=== PATIENT | male | born 1960 | race Caucasian/White ===

== ENCOUNTER 2016-04-20 08:23 | Day surgery (SDC) | payer BC ==
[~2016-04-20] VITALS: Ht 180.3 cm; Wt 102.3 kg
[~2016-04-20 08:23] MED LIST: BAYER CHEWABLE81 MG PO; CARDIZEM CD240 MG PO; CO Q-10200 MG PO; CYCLOBENZAPRINE10 MG PO; FISH OIL 1,0001 CA1 PO; HYDROCODONE-APA1 TAB PO; PRAVACHOL40 MG PO; PRILOSEC20 MG PO; TUMERIC PO; ULTRAM50 MG PO; ZANTAC150 MG PO; ZESTRIL40 MG PO
[2016-04-20 09:24] LABS: BASOPHILS 0.3 % (0.0-2.0); EOSINOPHILS 2.7 % (0-7); HEMATOCRIT 51.9 % (42.0-54.0); HEMOGLOBIN 17.4 g/dL (13.5-17.5); IMMATURE GRANULOCYTES 0.2 % (0-5); LYMPHOCYTES 22.8 % (15-50); MCH 28.8 pg (26.0-34.0); MCHC 33.5 g/dL (31.0-37.0); MCV 85.8 fL (80.0-100.0); MONOCYTES 7.8 % (2-11); NEUTROPHILS 66.2 % (40-80); PLATELET COUNT 189 10x3/uL (130-400); RBC 6.05 10x6/uL (4.20-6.10); RDW 14.8 % (11.5-14.5); WBC 6.3 10x3/uL (4.8-10.8)
[2016-04-20] MEDS ORDERED: BYSTOLIC2.5 MG PO (09:26)
[2016-04-20 09:33] VITALS: BP 110/58; Ht 180.3 cm; Wt 102.3 kg
[2016-04-20 09:42] LABS: ANION GAP 11.6 mmol/L (8-16); CALCIUM 9.3 mg/dL (8.5-10.1); CARBON DIOXIDE 28.7 mmol/L (21.0-32.0); CREATININE - SERUM 1.2 mg/dL (0.6-1.3); POTASSIUM - SERUM 4.3 mmol/L (3.5-5.1)
--- NOTE | 2016-04-20 12:03 | NUR ---
1135 DC INSTS REVIEWED VOICED UNDERSTANDING, RELEASED IN WC, CLEANER ASSISTANT.
--- NOTE | 2016-05-04 15:31 | OP ---
PATIENT NAME: QUANG RODRIGUEZ MEDICAL RECORD: [id number] :62 LOCATION:[facility] ADMISSION DATE: SURGEON: ROHINI DAVIS MD DATE OF OPERATION: 04/20/2016 PROCEDURE: Colonoscopy. PREOPERATIVE NOTE: Mr. Rodriguez is a pleasant 55-year-old white gentleman who has a personal history of colon polyps. His last colonoscopy was in 2010. He presents today for surveillance procedure. OPERATIVE NOTE: The procedure, risks, and complications were explained to the patient and consent was obtained. The patient was premedicated, sedated and a colonoscopy was performed. The colonoscope was advanced to the cecum with ease. The prep was good. The patient had no polyps, masses or diverticula throughout the colon. There is no erythema noted. Retroflexion showed minimal internal hemorrhoids. He tolerated the procedure well without immediate complication. IMPRESSION: Minimal internal hemorrhoids, otherwise normal colonoscopy. RECOMMENDATIONS: Repeat colonoscopy in 5-10 years. TRANSINT:[id number] Voice Confirmation ID: [id number] DOCUMENT ID: [id number] ROHINI DAVIS MD at 1531 CC: TRESSA FONSECA MD [id number] DICTATION DATE: 04/20/16 1018 MACHINERY DISMANTLER: 04/20/16 1050 [id number] [place] [address]
== END 2016-04-20 11:37 | disposition home or self-care (01) ==
LOC: D.OPS 08:23
PROVIDERS: Anesthesiology
DX: Z12.11 Encounter for screening for malignant neoplasm of colon (principal); Z86.010 Personal history of colon polyps; K64.8 Other hemorrhoids

== ENCOUNTER 2016-12-04 16:53 | Emergency (ER) | payer BC ==
[2016-04-20 09:33] VITALS: BMI 31.4
[~2016-12-04 16:53] MED LIST changes: +BYSTOLIC10 MG PO
[2016-12-04 17:41] LABS: BASOPHILS 0.2 % (0-2); EOSINOPHILS 1.9 % (0-7); HEMATOCRIT 42.1 % (42.0-54.0); HEMOGLOBIN 14.7 g/dL (13.5-17.5); IMMATURE GRANULOCYTES 0.1 % (0-5); LYMPHOCYTES 14.7 % (15-50); MCH 31.1 pg (26.0-34.0); MCHC 34.9 g/dL (31.0-37.0); MCV 89.2 fL (80.0-100.0); MEAN PLATELET VOLUME 9.7 fL (7.4-10.4); MONOCYTES 8.6 % (2-11); NEUTROPHILS 74.5 % (40-80); PLATELET COUNT 187 10x3/uL (130-400); RBC 4.72 10x6/uL (4.20-6.10); RDW 13.8 % (11.5-14.5); WBC 8.2 10x3/uL (4.8-10.8)
[2016-12-04 17:57] LABS: ALBUMIN 3.9 g/dL (3.4-5.0); ANION GAP 13.9 mmol/L (8-16); BILIRUBIN - TOTAL 1.07 mg/dL (0.2-1.3); CARBON DIOXIDE 26.5 mmol/L (21.0-32.0); CREATININE - SERUM 1.6 mg/dL (0.6-1.3); POTASSIUM - SERUM 3.4 mmol/L (3.5-5.1); PROTEIN - SERUM 7.1 g/dL (6.4-8.2)
[2016-12-04 18:40] LABS: APPEARANCE CLEAR (CLEAR); COLOR YELLOW (YELLOW)
[2016-12-04 18:41] LABS: BILIRUBIN NEGATIVE (NEGATIVE); GLUCOSE NEGATIVE (NEGATIVE); KETONE NEGATIVE (NEGATIVE); NITRITE NEGATIVE (NEGATIVE); PROTEIN NEGATIVE (NEGATIVE); UROBILINOGEN NORMAL (NORMAL)
[2016-12-04 18:42] LABS: BACTERIA FEW /hpf (NONE SEEN); WHITE CELLS - URINE OCC /hpf (0-5)
[2017-01-22] MEDS ORDERED: ZYLOPRIM300 MG PO (11:20)
[2017-01-22] MEDS ORDERED: LEXAPRO20 MG PO (11:21)
[2017-01-22] MEDS ORDERED: PROBIOTIC1 EAC1 PO (11:21)
[2017-01-22] MEDS ORDERED: RED YEAST RICE600 MG PO (11:21)
[2017-01-22] MEDS ORDERED: HYDROCHLOROTH12.5 M1 PO (11:21)
[2017-03-02] MEDS ORDERED: RESTORIL15 MG PO (12:12)
[2017-03-02] MEDS ORDERED: LOPID600 MG PO (12:12)
[2017-03-02] MEDS ORDERED: TESTOSTERON200 MG/ML IM (12:13)
== END 2016-12-04 19:56 | disposition home or self-care (01) ==
LOC: D.ER 16:53
PROVIDERS: Emergency Medicine; Physician Assistant Medical
DX: T67.2XXA Heat cramp, initial encounter (principal); X58.XXXA Exposure to other specified factors, initial encounter; Y93.89 Activity, other specified; Y92.89 Other specified places as the place of occurrence of the external cause; E86.0 Dehydration; I10 Essential (primary) hypertension

== ENCOUNTER → 2016-12-09 14:22 | Outpatient (CLI) | payer BC ==
[2016-04-20 09:33] VITALS: BMI 31.4
[~2016-12-09 14:22] MED LIST changes: +HYDROCHLOROTH12.5 M1 PO; +LEXAPRO20 MG PO; +LOPID600 MG PO; +PROBIOTIC1 EAC1 PO; +RED YEAST RICE600 MG PO; +RESTORIL15 MG PO; +TESTOSTERON200 MG/ML IM; +ZYLOPRIM300 MG PO
== END | disposition home or self-care (01) ==
LOC: D.MRI 12-04 10:00
DX: S83.221A Peripheral tear of medial meniscus, current injury, right knee, initial encounter (principal)

== ENCOUNTER 2017-01-25 06:21 | Day surgery (SDC) | payer BC ==
[~2017-01-25] VITALS: Ht 180.3 cm; Wt 108.9 kg
[~2017-01-25 06:21] MED LIST changes: -LOPID600 MG PO; -RESTORIL15 MG PO; -TESTOSTERON200 MG/ML IM
[2017-01-25 06:58] LABS: HEMATOCRIT 46.5 % (42.0-54.0); HEMOGLOBIN 15.6 g/dL (13.5-17.5); MCHC 33.5 g/dL (31.0-37.0); MCV 89.4 fL (80.0-100.0); MEAN PLATELET VOLUME 9.8 fL (7.4-10.4); RBC 5.2 10x6/uL (4.20-6.10); RDW 14.3 % (11.5-14.5); WBC 5.3 10x3/uL (4.8-10.8)
[2017-01-25 07:28] LABS: ANION GAP 10.1 mmol/L (8-16); CALCIUM 8.9 mg/dL (8.5-10.1); CARBON DIOXIDE 29.1 mmol/L (21.0-32.0); CREATININE - SERUM 1.2 mg/dL (0.6-1.3); POTASSIUM - SERUM 4.2 mmol/L (3.5-5.1)
[2017-01-25 07:31] VITALS: BP 123/76; Ht 180.3 cm; Wt 108.9 kg
[2017-01-25] MEDS ORDERED: HYDROCODONE-APA1 TAB PO (10:06)
--- NOTE | 2017-01-25 16:44 | OP ---
PATIENT NAME: QUANG RODRIGUEZ MEDICAL RECORD: [id number] :62 LOCATION:[facility] ADMISSION DATE: SURGEON: TRESSA JEFFREY MD DATE OF OPERATION: 01/25/2017 PREOPERATIVE DIAGNOSIS: Medial meniscus tear of the right knee. POSTOPERATIVE DIAGNOSES: Medial meniscus tear of the right knee plus lateral meniscus tear. PROCEDURES: 1. Arthroscopic partial medial meniscectomy. 2. Arthroscopic partial lateral meniscectomy. SURGEON: Tressa Jeffrey MD ANESTHESIA: General. INTRAOPERATIVE COMPLICATIONS: None. SUMMARY OF PATHOLOGIC FINDINGS: The patient did have some articular surface chondromalacia grade II on the most medial aspect of the medial femoral condyle where the menisci had been rubbing obviously and a radial beak tear on the lateral meniscus was also noted. OPERATIVE SUMMARY IN DETAIL: After obtaining the appropriate preoperative orthopedic surgery consent as well as anesthetic consultation, evaluation, and clearance, the patient was brought to the operating room and placed on the operating table in supine position. After general laryngeal mask airway was administered, tourniquet was placed about the proximal aspect of the right lower extremity. Right lower extremity was then prepped and draped in routine sterile fashion. The leg was elevated and exsanguinated, tourniquet inflated to 350 mmHg. A routine inferolateral portal was established followed by superior medial portal and inferomedial portal. Diagnostic arthroscopy revealed the above findings. Attention was first turned to complete debridement of the meniscal tear. The meniscus was debrided back to stable meniscal elements. The knee was then placed in a [id number]. The small radial oblique tear was also seen and taken down with a combination of meniscotome and a full radius resector. Having completed this, the knee was insufflated with 30 cc of 0.25% Marcaine with epinephrine and 80 mg of Depo-Medrol. Arthroscopy portals were closed in routine interrupted fashion using 4-0 Prolene. Sterile dressings were applied. The patient was awakened and taken to the recovery room in stable condition. All final needle, instrument, and sponge counts were correct. TRANSINT:[id number] Voice Confirmation ID: [id number] DOCUMENT ID: [id number] TRESSA JEFFREY MD at 1644 CC: [id number] DICTATION DATE: 01/25/17 1004 SALES ENABLEMENT LEAD: 01/25/17 1135 REG [facility] [address] [id number]
[2017-03-02] MEDS ORDERED: LOPID600 MG PO (12:12)
[2017-03-02] MEDS ORDERED: RESTORIL15 MG PO (12:12)
[2017-03-02] MEDS ORDERED: TESTOSTERON200 MG/ML IM (12:13)
== END 2017-01-25 14:10 | disposition home or self-care (01) ==
LOC: D.OPS 06:21 → D.PAN 08:30 → D.OPS 08:30
PROVIDERS: Anesthesiology
DX: S83.221A Peripheral tear of medial meniscus, current injury, right knee, initial encounter (principal); S83.281A Other tear of lateral meniscus, current injury, right knee, initial encounter; I10 Essential (primary) hypertension; K21.9 Gastro-esophageal reflux disease without esophagitis; Z01.812 Encounter for preprocedural laboratory examination

== ENCOUNTER 2017-02-08 12:03 | Day surgery (SDC) | payer BC ==
[~2017-02-08] VITALS: Ht 180.3 cm; Wt 111.1 kg
[2017-02-08 13:21] LABS: HEMATOCRIT 49.2 % (42.0-54.0); HEMOGLOBIN 16.7 g/dL (13.5-17.5); MCH 30.4 pg (26.0-34.0); MCHC 33.9 g/dL (31.0-37.0); MCV 89.6 fL (80.0-100.0); MEAN PLATELET VOLUME 10.2 fL (7.4-10.4); RBC 5.49 10x6/uL (4.20-6.10); RDW 14.1 % (11.5-14.5); WBC 9.2 10x3/uL (4.8-10.8)
[2017-02-08 13:42] VITALS: BP 123/87; Ht 180.3 cm; Wt 111.1 kg
[2017-02-08 13:43] LABS: ANION GAP 12.3 mmol/L (8-16); CALCIUM 9.2 mg/dL (8.5-10.1); CARBON DIOXIDE 25.9 mmol/L (21.0-32.0); CREATININE - SERUM 1.1 mg/dL (0.6-1.3); POTASSIUM - SERUM 4.2 mmol/L (3.5-5.1)
--- NOTE | 2017-02-08 17:58 | OP ---
PATIENT NAME: QUANG RODRIGUEZ MEDICAL RECORD: [id number] :62 LOCATION:[facility] ADMISSION DATE: SURGEON: TRESSA JEFFREY MD DATE OF OPERATION: 02/08/2017 DATE OF OPERATION: 02/08/2017 PREOPERATIVE DIAGNOSIS: Comminuted fracture of the right fourth metacarpal. POSTOPERATIVE DIAGNOSIS: Comminuted fracture of the right fourth metacarpal. PROCEDURE: Open reduction internal fixation of right fourth metacarpal. SURGEON: Tressa Jeffrey MD ANESTHESIA: General. INTRAOPERATIVE COMPLICATIONS: None. SUMMARY OF PATHOLOGIC FINDINGS: The patient did have a torque deformity with crossover upon flexion. Therefore, the decision was made to fix this operatively instead of let it heal without surgery. OPERATIVE SUMMARY IN DETAIL: After obtaining the appropriate preoperative orthopedic surgery consent as well as anesthetic consultation, evaluation and clearance, the patient was brought to the operating room and placed on the operating table in supine position. After general endotracheal anesthesia was administered, tourniquet was placed about the proximal aspect of the right upper extremity. Right upper extremity was then prepped and draped in routine sterile fashion. The arm was elevated and exsanguinated, tourniquet inflated to 250 mmHg. Linear incision was made directly over the fourth metacarpal taken down the extensor mechanism retracted. The periosteum was split, divided, and a subperiosteal dissection was taken down the fracture. The fracture was reduced and pinned provisionally with an 0.045 K-wire. Then under fluoroscopic guidance, a 2.3 VariAx plate with 8 holes was put in. Serial and sequential drill and fill was done with a combination of both compression and locking screws under fluoroscopic guidance. Final radiographs were taken and submitted for radiologist review. The wound was copiously irrigated and closed with 2-0 Vicryl followed by 4-0 Prolene in running fashion. The area was locally infiltrated with 0.25% Marcaine plain. Sterile dressings were applied. Tourniquet was deflated. The patient was awakened and taken to the recovery room in stable condition. All final needle and sponge counts were correct. TRANSINT:[id number] Voice Confirmation ID: [id number] DOCUMENT ID: [id number] TRESSA JEFFREY MD at 5147 CC: [id number] DICTATION DATE: 02/08/17 1310 ACTIVITIES MANAGER: 02/08/17 1742 REG [facility] [address], [facility]
[2017-03-02] MEDS ORDERED: LOPID600 MG PO (12:12)
[2017-03-02] MEDS ORDERED: RESTORIL15 MG PO (12:12)
[2017-03-02] MEDS ORDERED: TESTOSTERON200 MG/ML IM (12:13)
== END 2017-02-08 17:10 | disposition home or self-care (01) ==
LOC: D.OPS 12:03 → D.PAN 14:00 → D.OPS 14:00
PROVIDERS: Anesthesiology
DX: S62.304A Unspecified fracture of fourth metacarpal bone, right hand, initial encounter for closed fracture (principal); I10 Essential (primary) hypertension; K21.9 Gastro-esophageal reflux disease without esophagitis; M25.561 Pain in right knee; Z01.812 Encounter for preprocedural laboratory examination

== ENCOUNTER 2017-03-03 05:32 | Day surgery (SDC) | payer BC ==
[~2017-03-03] VITALS: Ht 180.3 cm; Wt 108.9 kg
--- NOTE | ~2017-03-03 | OP ---
PATIENT NAME: QUANG RODRIGUEZ MEDICAL RECORD: [id number] :62 LOCATION:D.OPS ADMISSION DATE: SURGEON: TRESSA JEFFREY MD DATE OF OPERATION: 03/03/2017 PREOPERATIVE DIAGNOSIS: Failure of fixation of right fourth metacarpal fracture status post open reduction internal fixation. POSTOPERATIVE DIAGNOSIS: Failure of fixation of right fourth metacarpal fracture status post open reduction internal fixation. PROCEDURE: Revision open reduction internal fixation. SURGEON: Tressa Jeffrey MD ANESTHESIA: General. INTRAOPERATIVE COMPLICATIONS: None. SUMMARY OF PATHOLOGIC FINDINGS: Essentially 2 screws had backed out, likely from overuse at the distal aspect rendering the fragment unstable with an apex dorsal position. OPERATIVE SUMMARY IN DETAIL: After obtaining the appropriate preoperative orthopedic surgery consents as well as anesthetic consultation, evaluation and clearance, the patient was brought to the operating room and placed on the operating table in supine position. After adequate general laryngeal mask airway was administered, tourniquet was placed about the proximal aspect of the right upper extremity. Right upper extremity was then prepped and draped in routine sterile fashion. The arm was elevated and exsanguinated, tourniquet inflated to 250 mmHg. Previously utilized incision was reincised again, extensor mechanisms were retracted. The plate was exposed in its entirety. One screw was in the soft tissues, the other screw was approximately alf out of the hole. All screws were removed. The entire plate was removed. The fracture was reduced again and then a longer [place] VariAx 8-hole plate was utilized to extend the fixation down the shaft of the metacarpal. Serial and sequential drill and fill was done with all locking plates under direct fluoroscopic guidance. When all screws were in place, radiographs were taken and submitted for final radiology review. The wound was copiously irrigated and closed with 2-0 Vicryl followed by 4-0 Prolene in running fashion. Sterile dressings were applied. Tourniquet was deflated and a volar splint was applied. Having completed this, the patient was awakened and taken to the recovery room in stable condition. All final needle and sponge counts were correct. TRANSINT:[id number] Voice Confirmation ID: [id number] DOCUMENT ID: [id number] TRESSA JEFFREY MD at 1207 CC: [id number] DICTATION DATE: 03/03/17 0854 CLOTH CLASSER: 03/03/17 1142 [facility] 03/03/17 [id number] [place] [id number]
[~2017-03-03 05:32] MED LIST changes: +LOPID600 MG PO; +RESTORIL15 MG PO; +TESTOSTERON200 MG/ML IM
[2017-03-03 06:18] VITALS: BP 121/67; Ht 180.3 cm; Wt 108.9 kg
[2017-03-03 06:25] LABS: HEMATOCRIT 48.7 % (42.0-54.0); HEMOGLOBIN 16.4 g/dL (13.5-17.5); MCH 30.4 pg (26.0-34.0); MCHC 33.7 g/dL (31.0-37.0); MCV 90.4 fL (80.0-100.0); MEAN PLATELET VOLUME 9.6 fL (7.4-10.4); RBC 5.39 10x6/uL (4.20-6.10); RDW 14.4 % (11.5-14.5)
[2017-03-03] MEDS ORDERED: HYDROCODONE-APA1 TAB PO (08:49)
== END 2017-03-03 10:30 | disposition home or self-care (01) ==
LOC: D.OPS 05:32 → D.PAN 07:30 → D.OPS 07:30
PROVIDERS: Anesthesiology
DX: S62.314A Displaced fracture of base of fourth metacarpal bone, right hand, initial encounter for closed fracture (principal); I10 Essential (primary) hypertension; K21.9 Gastro-esophageal reflux disease without esophagitis; Z01.812 Encounter for preprocedural laboratory examination

== ENCOUNTER → 2018-06-20 12:18 | Outpatient (CLI) | payer BC ==
[2017-03-03 06:18] VITALS: BMI 33.5
== END | disposition home or self-care (01) ==
LOC: D.MRI 12:18
PROVIDERS: ATTEND Family Medicine
DX: M54.5 Low back pain (principal)